=== PATIENT | female | born 1995 | race Caucasian/White ===

== ENCOUNTER 2021-01-09 13:53 | Outpatient (REF) | payer OTHER, SELFPAY ==
[2021-01-10 14:13] LABS: Chlamydia Result Negative (Negative); GC Result Negative (Negative)
== END 2021-01-09 13:54 | disposition home or self-care (01) ==
LOC: NCHCN 13:53
PROVIDERS: PCP Internal Medicine; Visit Provider Nurse Practitioner Family
DX: Z11.3 Encounter for screening for infections with a predominantly sexual mode of transmission (principal)
CPT/HCPCS: 87491; 87591

== ENCOUNTER 2021-07-05 13:00 | Outpatient (REF) | payer OTHER, SELFPAY ==
[2021-07-09 15:22] LABS: Chlamydia Result Negative (Negative); GC Result Negative (Negative)
== END 2021-07-05 13:01 | disposition home or self-care (01) ==
LOC: NCHCN 13:00
PROVIDERS: PCP Internal Medicine; Visit Provider Nurse Practitioner Family
DX: N93.8 Other specified abnormal uterine and vaginal bleeding (principal); Z11.3 Encounter for screening for infections with a predominantly sexual mode of transmission
CPT/HCPCS: 87491; 87591

== ENCOUNTER 2024-05-17 10:39 | Outpatient (REF) | payer BC, SELFPAY ==
--- NOTE | 2024-05-17 09:50 | PAPFT_PTH ---
PATIENT: Dari Langford LOC: [facility]#:[id number] AGE/SX: 28/F ROOM: RE05/17/[address]: Suzanne Raines : 1995 BED: DIS: 05/17/2024 SPEC #: [id number] RECD: 05/17/24 17:05 STATUS: PILI JONATHAN #: [id number] BRONSON: 05/17/24 09:[address]: Suzanne Raines DEPT: [facility] Cytology RECD BY: Adrianna Ledbetter ENTERED: 05/17/24 17:05 SP TYPE: PAPFT OTHR DR: Jhon Rahman Tissues: 1 - CX/ENDOCX FOR PAP SMEARS Procedures: PAP THIN PREP/[facility] Screening Comments: [id number]
== END 2024-05-17 10:40 | disposition home or self-care (01) ==
LOC: NCHCN 10:39
PROVIDERS: PCP Internal Medicine; Visit Provider Family Medicine
DX: Z12.4 Encounter for screening for malignant neoplasm of cervix
CPT/HCPCS: 88142